=== PATIENT | male | born 1955 | race Caucasian/White ===

== ENCOUNTER 2017-09-23 16:24 | Emergency (ER) | payer MEDICARE, OTHER ==
--- NOTE | 2017-09-23 17:03 | ED PDOC ---
Arrival/HPI - General Historian: Patient, Other (friend) - History of Present Illness Time/Duration: 24 hours Symptom Onset: Sudden Symptom Course: Unchanged Quality: Aching, Cramping Severity Level: 8 Context: Walking <Julien Jimenez - Last Filed: 09/23/17 19:02> <Greta Torrez - Last Filed: 09/23/17 19:13> - General Time Seen by Provider: 09/23/17 16:36 - History of Present Illness Narrative History of Present Illness (Text): 09/23/17 17:02 Patient is a 62 year old male with PMH of b/l knee and hip OA, HTN, DM2, HLD, PVD, and migraines who presents to ED with worsening R knee pain that started earlier today when he was walking on the street. He states that he was walking and then felt a buckle in his knee, his foot turned the other way, and he almost fell down. He states he felt pain in his R knee instantly and was worried that he might have broken something. He has had pain in his R knee for the last 2 years now. Initially, he received an MRI of the R knee in 06/2015. The MRI showed degenerative changes, edema, defect f medial tibial plateau, and concern for medial meniscal root tear. He has been following with Dr. Mendez Lamas since this time. He states that since the incident earlier today, the pain is worse. He endorses chronic LE swelling, R calf pain/tenderness, decreased sensation in the RLE, decreased ROM in the R knee. Otherwise he denies fever, chills, CP, SOB, nausea/vomiting/diarrhea, and changes in urination. (Julien Jimenez) Past Medical History - Provider Review Nursing Documentation Reviewed: Yes <Julien Jimenez - Last Filed: 09/23/17 19:02> Family/Social History - Physician Review Nursing Documentation Reviewed: Yes Family/Social History: No Known Family HX <Julien Jimenez - Last Filed: 09/23/17 19:02> Allergies/Home Meds <Julien Jimenez - Last Filed: 09/23/17 19:02> <Greta Torrez - Last Filed: 09/23/17 19:13> Allergies/Adverse Reactions: Allergies No Known Allergies Allergy (Verified 09/23/17 16:54) Home Medications: Home Meds Medication Instructions Recorded Confirmed Butalb/Acetaminophen/Caffeine 1 tab PO PRN PRN 09/23/17 09/23/17 [Zebutal 50-325-40 mg Capsule] Furosemide [Lasix] 40 mg PO DAILY 09/23/17 09/23/17 Losartan/Hydrochlorothiazide 1 tab PO DAILY 09/23/17 09/23/17 [Losartan-Hctz 100-12.5 mg Tab] Naproxen [Naprosyn] 500 mg PO BID 09/23/17 09/23/17 Oxybutynin Chloride [Oxybutynin 10 mg PO DAILY 09/23/17 09/23/17 Chloride ER] Simvastatin [Zocor] 40 mg PO DAILY 09/23/17 09/23/17 Sitagliptin Phos/Metformin HCl 1 tab PO DAILY 09/23/17 09/23/17 [Janumet 50-1,000 mg Tablet] metOLazone [Zaroxolyn] 2.5 mg PO DAILY 09/23/17 09/23/17 Review of Systems - Physician Review All systems were reviewed & negative as marked: Yes - Review of Systems Constitutional: absent: Fatigue, Weight Change, Fevers Eyes: absent: Vision Changes ENT: absent: Hearing Changes, Sore Throat Respiratory: absent: SOB, Cough Cardiovascular: Edema, Calf Pain. absent: Chest Pain, FARRAR Gastrointestinal: absent: Abdominal Pain, Diarrhea, Nausea, Vomiting Genitourinary Male: absent: Dysuria, Urinary Output Changes Musculoskeletal: Arthralgias, Joint Swelling, Myalgias Skin: absent: Rash, Pruritis Neurological: absent: Headache, Dizziness, Speech Changes Endocrine: absent: Diaphoresis Hemo/Lymphatic: absent: Adenopathy Psychiatric: absent: Anxiety, Depression <Julien Jimenez - Last Filed: 09/23/17 19:02> Physical Exam Vital Signs Reviewed: Yes Temperature: Afebrile Blood Pressure: Normal Pulse: Regular Respiratory Rate: Normal Appearance: Positive for: Non-Toxic, Uncomfortable Pain Distress: Moderate Mental Status: Positive for: Alert and Oriented X 3 - Systems Exam Head: Present: Atraumatic, Normocephalic Pupils: Present: PERRL Extroacular Muscles: Present: EOMI Mouth: Present: Moist Mucous Membranes Pharnyx: Present: Normal. No: ERYTHEMA, EXUDATE Neck: Present: Normal Range of Motion. No: Paraspinal Tenderness, JVD Respiratory/Chest: Present: Clear to Auscultation. No: Wheezes, Rales, Rhonchi Cardiovascular: Present: Regular Rate and Rhythm, Normal S1, S2. No: Murmurs, Rub, Gallop Abdomen: Present: Tenderness. No: Distention, Rebound, Guarding Upper Extremity: Present: Normal Inspection. No: Edema Lower Extremity: Present: Edema, CALF TENDERNESS (R calf tenderness greatest in posterolateral region), Tenderness (tenderness over R knee ), Other (ROM decreased in R knee compared to left, valgus strain slightly decreased on R knee compared to left, negative anterior/posterior draw bilaterally). No: Deformity Neurological: Present: Speech Normal Skin: Present: Warm, Dry Psychiatric: Present: Alert, Oriented x 3 <Julien Jimenez - Last Filed: 09/23/17 19:02> Vital Signs Temp Pulse Resp BP Pulse Ox 09/23/17 16:25 98.1 F 72 18 121/75 99 Medical Decision Making <Julien Jimenez - Last Filed: 09/23/17 19:02> <Gerta Torrez - Last Filed: 09/23/17 19:13> ED Course and Treatment: 09/23/17 17:17 -Physical exam remarkable for slightly decreased valgus strain on R knee compared to left -Plan on pain control with ibuprofen 800 and single dose of oxycodone -Will obtain CT RLE to acute fracture -Will obtain RLE doppler to r/o DVT, given his calf tenderness 09/23/17 19:02 -Doppler negative for DVT -CT RLE negative for fx -Plan to discharge home on percocet, flexeril (Julien Jimenez) 09/23/17 17:53 Janusz Chaney is a 62 year old male who presents to the emergency department today for a complaint of worsening right knee pain. In agreement with resident note, which includes further HPI details. Patient was seen and evaluated with resident, came up with plan and treatment together. (Greta Torrez) - RAD Interpretation Radiology Orders: 09/23/17 17:06 EXT LOWER W/O CONTRAST RIGHT [CT] Stat 09/23/17 17:08 DUPLEX LOWER EXTRM VEIN RIGHT [US] Stat - Medication Orders Current Medication Orders: Discontinued Medications Cyclobenzaprine HCl (Flexeril) 10 mg PO STAT STA Stop: 09/23/17 18:39 Last Admin: 09/23/17 18:48 Dose: 10 mg Ibuprofen (Motrin Tab) 800 mg PO STAT STA Stop: 09/23/17 17:10 Last Admin: 09/23/17 17:16 Dose: 800 mg Oxycodone/Acetaminophen (Percocet 5/325 Mg Tab) 1 tab PO STAT STA Stop: 09/23/17 17:10 Last Admin: 09/23/17 17:16 Dose: 1 tab [facility] Pain Assessment Document 09/23/17 17:16 [place] (Rec: 09/23/17 17:16 [place] [email or web address] Pain Reassessment Is this a pain reassessment? No Sleep Is patient sleeping during reassessment? No Presence of Pain Presence of Pain Yes Pain Scale Used Pain Scale Used Numeric Location Left, Right or Bilateral Right Pain Location Body Site Leg Description Description Intermittent Intensity of Pain at present 10 Pain Behavior Guarding Re-Assess: MAR Pain Assessment Document 09/23/17 18:16 [place] (Rec: 09/23/17 18:49 [place] [email or web address] Pain Reassessment Is this a pain reassessment? Yes Sleep Is patient sleeping during reassessment? No Presence of Pain Presence of Pain Yes Pain Scale Used Pain Scale Used Numeric Location Left, Right or Bilateral Right Pain Location Body Site Leg Description Intensity of Pain at present 7 Oxycodone/Acetaminophen (Percocet 2.5/325 Mg Tab) 1 tab PO STAT STA Stop: 09/23/17 18:38 Last Admin: 09/23/17 18:49 Dose: 1 tab <Julien Jimenez - Last Filed: 09/23/17 19:02> - PA / MEAT GRINDER / Resident Statement MD/DO has reviewed & agrees with the documentation as recorded. - Scribe Statement The provider has reviewed the documentation as recorded by the Scribe <Greta Torrez - Last Filed: 09/23/17 19:13> - Scribe Statement Claudine Chihsolm Provider Scribe Attestation: All medical record entries made by the Scribe were at my direction and personally dictated by me. I have reviewed the chart and agree that the record accurately reflects my personal performance of the history, physical exam, medical decision making, and the department course for this patient. I have also personally directed, reviewed, and agree with the discharge instructions and disposition. (Greta Torrez) Disposition/Present on Arrival <Julien Jimenez - Last Filed: 09/23/17 19:02> - Present on Arrival Any Indicators Present on Arrival: No History of DVT/PE: No History of Uncontrolled Diabetes: No Urinary Catheter: No History of Decub. Ulcer: No History Surgical Site Infection Following: None - Disposition Have Diagnosis and Disposition been Completed?: Yes Disposition Time: 19:13 Patient Plan: Discharge <Greta Torrez - Last Filed: 09/23/17 19:13> - Disposition Diagnosis: Knee pain, acute, Osteoarthritis, Acute meniscal injury of right knee Disposition: HOME/ ROUTINE Patient Problems: Current Active Problems Problem Status Onset Acute meniscal injury of right knee Acute Knee pain, acute Acute Osteoarthritis Acute Condition: CRITICAL Discharge Instructions (ExitCare): Osteoarthritis, Osteoarthritis (DC), Patellofemoral Pain (DC) Print Language: GAMBIAN Additional Instructions: OF NOTE YOUR ULTRASOUND RESULTS OF YOUR RIGHT LOWER EXTREMITY DOPPLER WERE NEGATIVE FOR DVT. tHE OFFICIAL REPORT OF IT CAN BE OBTAINED THROUGH MEDICAL RECORDS . youR CT SCAN RESULTS HAV KAYLYN APPENDED. we SUSPECT BESIDES OSTEOARTHRITIS OF MUT[place]LE COMPARTMENTS WITHIN YOUR KNEE., WE SUSPECT A LIKLEY MENISCAL INJURY GIVEN YOUR MECHANISM. pLEASE FOLLOW UP WITH Dr. Lamas with these results and concider another MRI and/or orthopedist evaluation for possible arthoscopy . . Prescriptions: Acetaminophen/Oxycodone Hydr [Percocet 10/325 mg Tab] 1 tab PO Q6H #20 tab Cyclobenzaprine [Cyclobenzaprine HCl] 10 mg PO Q8 PRN #20 tab PRN Reason: Pain, Moderate (4-7) Ibuprofen [Motrin Tab] 600 mg PO Q6 PRN #40 tab PRN Reason: Pain, Moderate (4-7) Forms: [employer] (French)
[2017-09-23] MEDS ORDERED: Oxycodone/Acetaminophen 5/325 mg Tab PO STA (17:09)
[2017-09-23 17:15] VITALS: RESP 18; BMI 57.6
[2017-09-23] MEDS ORDERED: Oxycodone/Acetaminophen 2.5/325 mg Tab PO STA (18:37)
[2017-09-23 19:44] VITALS: BP 135/74; PULSE 65; TEMP 98.4; O2SAT 99
--- NOTE | 2017-09-24 12:07 | CT ---
Date of service: 09/23/2017 PROCEDURE: CT of the right knee HISTORY: old tib plat frx,now w/increased knee postlat cunningham COMPARISON: TECHNIQUE: Radiation dose: Total exam DLP = 571 mGy-cm. This CT exam was performed using one or more of the following dose reduction techniques: Automated exposure control, adjustment of the mA and/or kV according to patient size, and/or use of iterative reconstruction technique. FINDINGS: Degenerative changes are seen in the medial compartment. There is an osteochondral defect with bony sclerosis adjacent to the tibial plateau. There is a smaller lesion in the adjacent femoral condyles. The lateral joint space and the patellofemoral joint are unremarkable. There is a small joint effusion The report concurs with the preliminary [facility] report IMPRESSION: Degenerative changes in the medial joint space.
--- NOTE | 2017-09-25 10:00 | US ---
PROCEDURE: Right lower extremity venous US HISTORY: Leg pain and swelling. Evaluate for DVT. PHYSICIAN(S): Castro Mccauley M.D. TECHNIQUE: Duplex sonography and color-flow Doppler with graded compression were used to evaluate the deep venous system of the right lower extremity. The exam is somewhat limited by body habitus. FINDINGS: The visualized deep venous system of the right lower extremity is sonographically normal and compressible. Normal waveforms and augmentation are seen. There is no sonographic evidence for deep venous thrombosis in the visualized segments of the right lower extremity. IMPRESSION: 1. No sonographic evidence for deep venous thrombosis in the visualized segments of the right lower extremity.
== END 2017-09-23 19:35 | disposition home or self-care (01) ==
LOC: ED 16:24
DX: S83.8X1A Sprain of other specified parts of right knee, initial encounter (principal); W19.XXXA Unspecified fall, initial encounter; M25.561 Pain in right knee; M19.90 Unspecified osteoarthritis, unspecified site; E78.5 Hyperlipidemia, unspecified; I10 Essential (primary) hypertension; E11.9 Type 2 diabetes mellitus without complications

== ENCOUNTER 2018-05-03 13:33 | Outpatient (CLI) | payer MEDICARE, OTHER | END 2018-05-03 13:34 | disposition home or self-care (01) | LOC: LAB 13:33 ==